=== PATIENT | female | born 1990 | race Caucasian/White ===

== ENCOUNTER 2017-03-03 12:11 | Emergency (ER) | payer OTHER ==
[2017-03-03 12:19] VITALS: RESP 16
[2017-03-03] MEDS ORDERED: ONDANSETRON 4 MG/2 ML VIAL IVP ONE (12:25)
[2017-03-03] MEDS ORDERED: NS 500 ML IV ONE (12:25)
--- NOTE | 2017-03-03 12:50 | EDPHY ---
H & P Stated Complaint: N/V since early am Time Seen by Provider: 03/03/17 12:40 - Personal History LMP (Females 10-55): 1-7 Days Ago Current Tetanus/Diphtheria Vaccine: Yes Current Tetanus Diphtheria and Acellular Pertussis (TDAP): Yes - Medical/Surgical History Hx Asthma: No Hx Chronic Respiratory Disease: No Hx Diabetes: No Hx Cardiac Disease: No Hx Renal Disease: No Hx Cirrhosis: No Hx Alcoholism: No Hx HIV/AIDS: No Hx Splenectomy or Spleen Trauma: No Other PMH: celiac - Social History Smoking Status: Never smoked Constitutional: Initial Vital Signs Heart Rate 93 03/03/17 12:15 Respiratory Rate 16 03/03/17 12:15 Blood Pressure 155/99 H 03/03/17 12:15 O2 Sat (%) 100 03/03/17 12:15 O2 Delivery Mode Room Air Allergies/Adverse Reactions: gluten Allergy (Verified 03/03/17 12:13) Home Medications: Medication Instructions Recorded Wellbutrin Sr 03/03/17 Medical Decision Making ED Course/Re-evaluation: CHIEF COMPLAINT: Nausea and vomiting HISTORY OF PRESENT ILLNESS: The patient is a 26 y/o female arriving with her mother complaining of nausea for the last 6 months with acute exacerbation of vomiting early this morning. She reports significant waves of nausea about twice per week over the last several months and sometimes has associated episodes of vomiting. She has not had prior medical evaluations with a GI for these symptoms because she has associated them with her Celiac's disease or possibly stress. She most frequently has episodes beginning around 15:00. This morning she woke around 02:00, about 11 hours ago, and has been vomiting almost continuously since then. She does endorse daily marijuana use. No other pertinent medical history. Her symptoms have almost completely resolved with Zofran and IV fluids at the time of assessment and she feels she could tolerate PO fluids currently. REVIEW OF SYSTEMS: A 10 point review of systems was performed and is negative with the exception of the elements mentioned in the history of present illness. PHYSICAL EXAM: HR, BP, O2 Sat, RR. Temp noted General Appearance: Alert, well hydrated, appropriate, and non-toxic appearing. Head: Atraumatic without scalp tenderness or obvious injury Eyes: Pupils equal, round, reactive to light and accommodation, EOMI, no trauma , no injection. Nose: Atraumatic, no rhinorrhea, clear. Throat: Mucus membranes moist. Neck: Supple, non-tender, no lymphadenopathy. Respiratory: No retractions, no distress, no wheezes, and no accessory muscle use. Lungs are clear to auscultation bilaterally. Cardiovascular: Regular rate and rhythm, no murmurs, rubs, or gallops. Good capillary refill all extremities. Gastrointestinal: Abdomen is soft, non-tender, non-distended, no masses, no rebound, no guarding, no peritoneal signs. Musculoskeletal: Normal active ROM of all extremities, atraumatic. Neurological: Alert, appropriate, and interactive. Nonfocal neuro exam. Skin: No rashes, good turgor, no nodules on palpation. PAST MEDICAL HISTORY: Celiac disease PAST SURGICAL HISTORY: Denies SOCIAL HISTORY: Visiting parents in [place] from [place]. Daily marijuana use. Mother at bedside. DIFFERENTIAL DIAGNOSIS: The differential diagnosis for the patient's nausea and vomiting included but was not limited to marijuana-associated cyclic vomiting syndrome, gastroenteritis, gastritis, appendicitis, and medication side effect. MEDICAL DECISION MAKING: This is a 26 y/o female with a history of Celiac disease who presents with a 6- month history of episodic nausea and vomiting with an acute exacerbation this morning. She has not seen a GI for this and endorses daily marijuana use. Her abdomen is completely benign on exam. She has no infectious symptoms. Her vomiting and nausea have completely resolved after 500mL IV NS and 4mg IV Zofran and she is tolerating PO fluids. She will be discharged home with Zofran and recommendation to follow up with GI and reduce marijuana use. She agrees with plan. Return precautions given. - Data Points Medications Given: Discontinued Medications Sodium Chloride (Ns) 500 mls @ 1,000 mls/hr IV ONCE ONE PRN Reason: Protocol Stop: 03/03/17 12:54 Last Admin: 03/03/17 12:42 Dose: 500 mls Ondansetron HCl (Zofran) 4 mg IVP EDNOW ONE Stop: 03/03/17 12:26 Last Admin: 03/03/17 12:42 Dose: 4 mg Departure - Departure Disposition: Home, Routine, Self-Care Clinical Impression: chronic, Dehydration Nausea and vomiting Qualifiers: Vomiting type: unspecified Vomiting Intractability: non-intractable Qualified Code(s): R11.2 - Nausea with vomiting, unspecified Condition: Good Instructions: Acute Nausea and Vomiting (ED) Additional Instructions: 1. Use Zofran as prescribed for nausea and vomiting. 2. Discontinue marijuana use. There is evidence marijuana can cause cyclic vomiting syndrome in some people. 3. Follow up with a it manager upon your return home. You've been referred to Dr. Akins locally if needed. 4. Return for worsening of condition. Referrals: Isabella Akins MD [Medical Doctor] - As per Instructions
[2017-03-03] MEDS ORDERED: ONDANSETRON 4MG PREPACK#2 BTL TAKEHOME ONE (12:58)
[2017-03-03 13:20] VITALS: BP 115/66; PULSE 68; O2SAT 97
== END 2017-03-03 13:20 | disposition home or self-care (01) ==
DX: E86.0 Dehydration (principal)
CPT/HCPCS: 96374; J2405